=== PATIENT | male | born 1995 | race Two or more races ===

== ENCOUNTER 2017-03-27 21:58 | Emergency (ER) | payer MEDICAID ==
[2017-03-27] MEDS ORDERED: Ketorolac 60 MG/2 ML SDV IM ONE (22:58)
--- NOTE | 2017-03-27 23:02 | EDM.PDOC ---
ED HPI GENERAL MEDICAL PROBLEM - General Chief Complaint: ENT Problem Stated Complaint: L LOWER TOOTH PAIN Time Seen by Provider: 03/27/17 22:26 Source of Information: Reports: Patient History Limitations: Reports: No Limitations - History of Present Illness INITIAL COMMENTS - FREE TEXT/NARRATIVE: Dental Pain; This is a 22 year old male present to ER with female friend, reports 2 months ago had dental work, fillings placed, about 3 am yesterday woke up in severe tooth pain. along the lower and upper molars, went to the store and purchase dental putty, place over teeth, but still in pain. tried tylenol, motrin, left over amoxicillin without relief of symptom. call Dental Clinic, no appointments til next Sunday. Onset Date: 03/26/17 Onset Time: 03:00 Duration: Day(s): Location: Reports: Other (dental) Quality: Reports: Sharp, Throbbing Severity: Severe Improves with: Reports: None Worsens with: Reports: Cold Therapy, Eating Context: Reports: Other (dental) Treatments [employer]: Reports: Acetaminophen, NSAIDS Left bottom molar Pain Score (Numeric/FACES): 5 - Related Data Allergies Allergy/AdvReac Type Severity Reaction Status Date / Time No Known Allergies Allergy Verified 03/27/17 22:29 Home Meds: Home Meds NK [No Known Home Meds] 03/27/17 [History] Past Medical History Dermatologic History: Reports: Other (See Below) Other Dermatologic History: dry skin Social & Family History - Tobacco Use Smoking Status *Q: Never Smoker - Caffeine Use Caffeine Use: Reports: Coffee, Soda - Recreational Drug Use Recreational Drug Use: No ED ROS ENT - Review of Systems Review Of Systems: See Below Constitutional: Reports: Other (dental pain) HEENT: Reports: Dental Pain Respiratory: Reports: No Symptoms Cardiovascular: Reports: No Symptoms Endocrine: Reports: No Symptoms Skin: Reports: No Symptoms Immunologic: Reports: No Symptoms ED EXAM, ENT - Physical Exam Exam: See Below Exam Limited By: No Limitations General Appearance: Alert, WD/WN, Mild Distress Eye Exam: Bilateral Eye: Normal Inspection Ears: Normal External Exam Nose: Normal Inspection Mouth/Throat: Normal Inspection, Dental Pain, Dental Tenderness, Other (left upper and lower molar with white dental putty covering surface of teeth.) Head: Atraumatic, Normocephalic, Facial Tenderness (left cheek) Respiratory/Chest: No Respiratory Distress Course - Vital Signs Last Recorded V/S: Last Vital Signs Temp 36.8 C 03/27/17 22:36 Pulse 74 03/27/17 22:54 Resp 16 03/27/17 22:54 BP 136/99 H 03/27/17 22:54 Pulse Ox 97 03/27/17 22:54 - Orders/Labs/Meds Meds: Medications Discontinued Medications Generic Name Dose Route Start Last Admin Trade Name Joe PRN Reason Stop Dose Admin Ketorolac Tromethamine 60 mg 03/27/17 22:58 Toradol IM 03/27/17 22:59 ONETIME ONE - Re-Assessments/Exams Free Text/Narrative Re-Assessment/Exam: 03/27/17 23:16 Toradol 60 mg im referral to Dental Clinic in am Departure - Departure Time of Disposition: 23:17 Disposition: Home, Self-Care 01 Condition: Good Clinical Impression: Dental caries - Discharge Information Instructions: Dental Caries, [id number] Referrals: PCP,None [Primary Care Provider] - Forms: ED Department Discharge Care Plan Goals: dental pain -Toradol 60 mg IM home meds -Keflex 500mg take one 4 times a day for 10 days -Hydrocodone 5-325mg take one to two tablets every 4 to 6 hours as needed for pain -soft diet -referral to Dental Clinic in am for further care and treatment. - Problem List & Annotations (1) Dental caries SNOMED Code(s): 88873276 Code(s): K02.9 - DENTAL CARIES, UNSPECIFIED Status: Acute Priority: Medium Current Visit: Yes - Problem List Review Problem List Initiated/Reviewed/Updated: Yes - Assessment/Plan Plan: dental pain -Toradol 60 mg IM home meds -Keflex 500mg take one 4 times a day for 10 days -Hydrocodone 5-325mg take one to two tablets every 4 to 6 hours as needed for pain -soft diet -referral to Dental Clinic in am for further care and treatment.
== END 2017-03-27 23:26 | disposition home or self-care (01) ==
LOC: JP.ED 21:58
DX: K02.9 Dental caries, unspecified (principal)
CPT/HCPCS: 96372; 99283; J1885